=== PATIENT | female | born 1945 | race Caucasian/White ===

== ENCOUNTER → 2017-10-30 | Outpatient (CLI) | payer OTHER ==
[~2017-10-30] MED LIST: VICODIN ES 7501 TAB PO
[2017-10-30 10:32] LABS: HEMOGLOBIN 10.8 g/dl (12.0-16.0); MEAN CELL VOLUME 77.3 fl (81.0-99.0); MEAN CORPUSCULAR HGB 23.2 pg (27.0-31.0); MEAN PLATELET VOLUME 10.1 fl (9.6-12.3); RED BLOOD COUNT 4.66 10*6/uL (4.10-5.10); RED CELL DISTRI WIDTH 18.3 % (0-14.5); WHITE BLOOD COUNT 9.6 10*3/uL (4.8-10.8)
[2017-10-30 11:00] LABS: ALBUMIN 2.8 gm/dl (3.1-4.5); BUN 15 mg/dl (7-24); CHLORIDE 104 mmol/L (98-107); CHOLESTEROL 205 mg/dL (<200); CREATININE 0.98 mg/dL (0.55-1.02); HDL CHOLESTEROL 46 mg/dl (40-60); LDL CHOLESTEROL 114 mg/dL (9-159); POTASSIUM 3.8 mmol/L (3.5-5.1); SGOT/AST 12 IU/L (3-35); SGPT/ALT 16 U/L (12-78); SODIUM 137 mmol/L (136-145); TOTAL PROTEIN 7.4 gm/dL (6.4-8.2); TRIGLYCERIDES 224 mg/dl (<150); VLDL CHOLESTEROL 45 mg/dL (6-40)
[2017-10-30 11:06] LABS: ALKALINE PHOSPHATASE 87 U/L (45-117); FREE T4 0.74 ng/dl (0.76-1.46); THYROID STIM HORMONE (HS) 0.719 uIU/ml (0.358-4.75)
[2017-10-31 07:04] LABS: FREE T3 010389 2.5 pg/mL (2.0-4.4)
[2017-10-31 09:07] LABS: HEPATITIS B SURFACE AG Negative (Negative); HEPATITIS C VIRUS ANTIBODY <0.1 s/co (0.0-0.9)
== END | disposition home or self-care (01) ==
LOC: LAB 09:58
PROVIDERS: Family Medicine
DX: Z13.818 Encounter for screening for other digestive system disorders (principal); I50.9 Heart failure, unspecified; R06.02 Shortness of breath; R05 Cough; E03.1 Congenital hypothyroidism without goiter; E55.9 Vitamin D deficiency, unspecified; E78.00 Pure hypercholesterolemia, unspecified; R60.0 Localized edema

== ENCOUNTER → 2017-12-28 | Outpatient (CLI) | payer OTHER | END | disposition home or self-care (01) | LOC: US 10:55 → MAMMO 13:00 | DX: N64.89 Other specified disorders of breast (principal); R10.813 Right lower quadrant abdominal tenderness ==

== ENCOUNTER → 2018-01-17 | Outpatient (CLI) | payer OTHER | END | disposition home or self-care (01) | LOC: MAMMO 12-28 13:00 | DX: N64.89 Other specified disorders of breast (principal) ==

== ENCOUNTER → 2018-02-19 | Outpatient (CLI) | payer OTHER | END | disposition home or self-care (01) | LOC: RAD 16:29 | DX: R09.89 Other specified symptoms and signs involving the circulatory and respiratory systems (principal); R06.02 Shortness of breath; R05 Cough; J44.9 Chronic obstructive pulmonary disease, unspecified; Z87.891 Personal history of nicotine dependence ==

== ENCOUNTER → 2018-03-07 | Outpatient (CLI) | payer OTHER | LOC: CARD 07:21 | DX: R53.83 Other fatigue (principal); R60.0 Localized edema; R06.02 Shortness of breath ==

== ENCOUNTER 2019-05-27 12:56 | Inpatient (IN) | payer OTHER ==
[~2019-05-27] VITALS: Ht 157.4 cm; Wt 102.0 kg
--- NOTE | ~2019-05-27 | EKG ---
[place], [place] ELECTROCARDIOGRAM REPORT NAME: KAROLINA VELA UNIT #: [id number] ROOM: 528 DOCTOR: ZAID DRAFT REPORT BIRTHDATE: [birth year] [facility] Test Date: 2019-05-27 Test Time: 16:20:33 Pat Name: KAROLINA VELA Department: Room: 528 Gender: F Rfid Systems Engineer: SS RESP : 1945 Requested By: GUNNER KNAPP Order Number: [id number] Reading MD: Dairn Hidalgo MD Measurements Intervals [place] Rate: 98 P: 63 [place]: 153 QRS: 43 QRSD: 90 T: 55 QT: 423 QTc: 541 Interpretive Statements Sinus rhythm Multiple premature complexes, vent \T\ supraven Electronically Signed On 05-28-2019 4:54:45 PDT by Darin Hidalgo MD CM:EKGRPT:ELECTROCARDIOGRAM REPORT [id number] GUNNER MAR DRAFT REPORT GUNNER KNAPP M.D.
--- NOTE | ~2019-05-27 | PR ---
[place], [place] PROGRESS NOTE NAME: KAROLINA VELA [facility] #: [id number] UNIT #: [id number] ROOM: 528 DOCTOR: ROSALINDA YO MD BIRTHDATE: [birth year] DOS: 05/28/2019 SUBJECTIVE: The patient says her breathing is improving. No chest pains. She still has shortness of breath with exertion. OBJECTIVE: VITAL SIGNS: Blood pressure 124/69, heart rate of 70 beats per minute, breathing 20 times per minute, temperature 98 degrees Fahrenheit. GENERAL APPEARANCE: Obesity. The patient is alert and oriented x 3, in no visible distress. HEENT AND NECK: Exam within normal limits. CARDIOVASCULAR SYSTEM: Heart rate is regular in rate and rhythm. S1 and S2 normally audible. LUNGS: Clear to auscultation. ABDOMEN: Soft, nontender. No obvious organomegaly. Bowel sounds are present. EXTREMITIES: Without significant cyanosis or edema. IMPRESSION: 1. The patient with acute exacerbation of chronic obstructive pulmonary disease, improving with treatment with corticosteroids, oxygen, antibiotic. 2. Advanced adult failure to thrive with dyspnea on exertion. The patient to work with Physical Therapy. 3. Leukocytosis completely resolved in 1 day with antibiotic treatment. 4. Severe protein calorie malnutrition. Patient working with Dietary. 5. Morbid obesity with BMI of 41.1. Patient working Dietary. ROSALINDA YO MD CM:PNTRANS [id number] ROSALINDA YO MD 05/29/19 0129 interface
--- NOTE | ~2019-05-27 | EKG ---
[place], [place] ELECTROCARDIOGRAM REPORT NAME: KAROLINA VELA UNIT #: [id number] ROOM: 528 DOCTOR: ZAID DRAFT REPORT BIRTHDATE: [birth year] [facility] Test Date: 2019-05-27 Test Time: 12:58:47 Pat Name: KAROLINA VELA Department: Room: 528 Gender: F Director Of Security: : 1945 Requested By: GUNNER KNAPP Order Number: [id number] Reading MD: Darin Hidalgo MD Measurements Intervals [place] Rate: 84 P: 56 [place]: 153 QRS: 43 QRSD: 91 T: 58 QT: 400 QTc: 473 Interpretive Statements Sinus rhythm PACs and PVCs Electronically Signed On 05-28-2019 4:53:17 PDT by Darin Hidalgo MD CM:EKGRPT:ELECTROCARDIOGRAM REPORT [id number] GUNNER MAR DRAFT REPORT GUNNER KNAPP M.D.
--- NOTE | ~2019-05-27 | WRIGHTHP ---
[place], [place] PATIENT HISTORY AND PHYSICAL EXAM NAME: KAROLINA VELA [facility] #: [id number] UNIT #: [id number] ROOM: 528 DOCTOR: ROSALINDA YO MD BIRTHDATE: [birth year] DOS: 05/27/2019 HISTORY OF PRESENT ILLNESS: The patient is a 73-year-old female with a past medical history of: 1. Obesity. 2. COPD. 3. Cholecystectomy and appendectomy. 4. Hernia repair surgeries. 5. Fusion surgery to the back. 6. Severe protein-calorie malnutrition and adult failure to thrive, presented to the Emergency Department with 1 week complaints of increasing shortness of breath and dyspnea on exertion. No chest pains. SYSTEMS REVIEW: RESPIRATORY: Increasing shortness of breath. GASTROINTESTINAL: No nausea, vomiting, diarrhea or constipation. CARDIOVASCULAR: No chest pains or palpitations. FAMILY HISTORY: Noncontributory. HOME MEDICATIONS: Not known at this time. FAMILY HISTORY: Noncontributory. SOCIAL HISTORY: Denies smoking cigarettes, alcohol and drug abuse. Lives at home. PHYSICAL EXAMINATION: GENERAL APPEARANCE: Alert, oriented x 3, in no visible distress. VITAL SIGNS: Blood pressure 135/69, heart rate 78 beats per minute, breathing 18 times per minute, temperature 98.3 degrees Fahrenheit. HEENT AND NECK: Extraocular movements are intact. Sclerae are anicteric. Oral mucosa is moist and clean. No obvious facial weakness. Neck is supple without any lymphadenopathy. No thyromegaly. No JVD. No carotid arterial bruits. LUNGS: Clear to auscultation. No wheezing. No rhonchi. CARDIOVASCULAR SYSTEM: Heart rate is regular in rate and rhythm. S1 and S2 normally audible. No significant murmur or any other abnormal cardiac sounds. ABDOMEN: Morbid obesity. EXTREMITIES: Without significant cyanosis or edema. Warm to touch. CENTRAL NERVOUS SYSTEM: Alert and oriented x 3. Cranial nerves II-XII are intact. Speech is normal. The patient is able to move all extremities. Normal muscle strength. Deep tendon reflexes are equal on both sides. Plantars were downgoing. IMPRESSION: 1. Acute exacerbation of chronic obstructive pulmonary disease, to be treated with bronchodilators, corticosteroids, oxygen, nebulizer treatments and followed closely. 2. Leukocytosis. The patient to be kept on intravenous Zosyn. No signs of pneumonia on the chest x-ray. 3. Severe protein-calorie malnutrition. The patient to be followed by Dietary [place], [place] PATIENT HISTORY AND PHYSICAL EXAM [facility]: [id number] UNIT #: [id number] ROOM: 528 DOCTOR: SRINATH CARRILLO,ROSALINDA Ley BIRTHDATE: [birth year] and I will keep her on a regular diet. 4. Advanced adult failure to thrive. The patient will be kept on physical therapy. We will take fall and bedsore precautions, use an air mattress. ROSALINDA YO MD CM:HISPHYS:PATIENT HISTORY AND PHYSICAL EXAMINATION 164 02 ROSALINDA YO MD 05/27/191702 interface
--- NOTE | ~2019-05-27 | DS ---
[place], [place] DISCHARGE SUMMARY NAME: KAROLINA VELA UNIT #: [id number] ROOM: 528 DOCTOR: ROSALINDA YO MD BIRTHDATE: [birth year] DOS: 05/29/2019 DISCHARGE DIAGNOSES: 1. The patient with acute exacerbation of chronic obstructive pulmonary disease. 2. Morbid obesity, BMI of 41.1. 3. Severe protein-calorie malnutrition. 4. Adult failure to thrive. 5. Chronic obstructive pulmonary disease and dyspnea on exertion. HOSPITAL COURSE: The patient presented to [facility] Emergency Department with increased shortness of breath and dyspnea on exertion with cough and purulent sputum. The patient was diagnosed as having acute exacerbation of COPD and was treated with bronchodilators, corticosteroids, oxygen, antibiotic and her breathing is significantly improved. The patient still has purulent sputum, so she is being sent home on Augmentin, Medrol Dosepak and to follow up with her PCP, Dr. Ben Bazan within 1 week of discharge. The patient is not requiring any oxygen. Pulse ox is 93-96% on room air before discharge. The patient presented with severe leukocytosis, which resolved with antibiotics, but again white cell count became elevated from use of corticosteroids, which will be tapered down at home. Severe protein-calorie malnutrition. The patient worked with Dietary. Morbid obesity, BMI of 41.1. The patient worked with Dietary. Advance adult failure to thrive and dyspnea on exertion. The patient worked with Physical Therapy. The patient appears to have achieved maximum benefit from this admission and to follow up with her PCP as an outpatient within a week of discharge. LABORATORY DATA: White cell count ranging between 10-18,000 on blood counts. Blood cultures were negative. Cardiac enzymes were negative. Lactic acid level was normal. Chest x-ray showed no active disease. DISCHARGE MANAGEMENT: Medrol Dosepak, Augmentin 875 mg twice a day for a week. FOLLOWUP: With PCP within a week, Dr. Ben Bazan. [place], [place] DISCHARGE SUMMARY NAME: KAROLINA VELA UNIT #: [id number] ROOM: 528 DOCTOR: ROSALINDA YO MD BIRTHDATE: [birth year] ROSALINDA YO MD CM:HUGH [id number] ROSALINDA YO MD 05/29/191946 interface
--- NOTE | ~2019-05-27 | EKG ---
[place], [place] ELECTROCARDIOGRAM REPORT NAME: KAROLINA VELA UNIT #: [id number] ROOM: 528 DOCTOR: ZAID DRAFT REPORT BIRTHDATE: [birth year] [facility] Test Date: 2019-05-27 Test Time: 18:39:53 Pat Name: KAROLINA VELA Department: Room: 528 Gender: F Electrotherapist: SS RESP : 1945 Requested By: GUNNER KNAPP Order Number: [id number] Reading MD: Darin Hidalgo MD Measurements Intervals [place] Rate: 86 P: 72 [place]: 149 QRS: 45 QRSD: 90 T: 65 QT: 371 QTc: 444 Interpretive Statements Sinus rhythm Multiple premature complexes, vent \T\ supraven Borderline T abnormalities, anterior leads Electronically Signed On 05-28-2019 4:56:38 PDT by Darin Hidalgo MD CM:EKGRPT:ELECTROCARDIOGRAM REPORT [id number] GUNNER MAR DRAFT REPORT GUNNER KNAPP M.D.
[2019-05-27 12:59] VITALS: BP 129/57
[2019-05-27 13:16] LABS: BASO # 0.1 10*3/uL (0.0-0.1); BASO % 0.6 % (0.0-1.0); EOS # 0.3 10*3/uL (0.0-0.4); EOS % 1.7 % (1.0-4.0); HEMATOCRIT 37.2 % (37.0-47.0); HEMOGLOBIN 10.9 g/dl (12.0-16.0); LYMPH # 3.1 10*3/uL (1.3-4.4); LYMPH % 20.8 % (27.0-41.0); MEAN CELL VOLUME 74.7 fl (81.0-99.0); MEAN CORPUSCULAR HGB 21.9 pg (27.0-31.0); MEAN CORPUSCULAR HGB CONC 29.3 g/dl (33.0-37.0); MEAN PLATELET VOLUME 10.2 fl (9.6-12.3); MONO # 0.8 10*3/uL (0.1-1.0); MONO % 5.4 % (3.0-9.0); NEUT # 10.6 10*3/uL (2.3-7.9); NEUT % 71.1 % (47.0-73.0); PLATELET COUNT AUTOMATED 438 10*3/uL (130-400); RED BLOOD COUNT 4.98 10*6/uL (4.10-5.10); RED CELL DISTRI WIDTH 17.6 % (0-14.5); WHITE BLOOD COUNT 14.9 10*3/uL (4.8-10.8)
[2019-05-27 13:26] LABS: ACT PARTIAL THROMBO TIME 29.6 SECONDS (20.0-32.1)
[2019-05-27 13:35] LABS: ALBUMIN 2.5 gm/dl (3.1-4.5); ALKALINE PHOSPHATASE 88 U/L (45-117); BUN 12 mg/dl (7-24); CHLORIDE 102 mmol/L (98-107); CREATININE 0.98 mg/dL (0.55-1.02); POTASSIUM 3.6 mmol/L (3.5-5.1); SGOT/AST 8 IU/L (3-35); SGPT/ALT 16 U/L (12-78); SODIUM 138 mmol/L (136-145); TOTAL PROTEIN 8.3 gm/dL (6.4-8.2)
[2019-05-27 13:37] LABS: TROPONIN I < 0.015 ng/ml (<0.045)
[2019-05-27 14:18] VITALS: BP 133/63
[2019-05-27 15:40] VITALS: BP 135/69
--- NOTE | 2019-05-27 16:09 | NUR ---
PT IS STABLE AND READY FOR TRANSPORT TO INPATIENT ROOM.
[2019-05-27 20:00] VITALS: BP 102/58
--- NOTE | 2019-05-27 21:52 | NUR ---
DR YO AWARE OF BLOOD PRESSURE
[2019-05-28] VITALS: BP 112/54
--- NOTE | 2019-05-28 05:29 | NUR ---
MEDICATED WITH PRN TYLENOL FOR C/O PAIN IN LEGS AND BACK. WLL MONITOR
[2019-05-28 06:21] LABS: HEMATOCRIT 36.6 % (37.0-47.0); HEMOGLOBIN 10.5 g/dl (12.0-16.0); MEAN CELL VOLUME 75.9 fl (81.0-99.0); MEAN CORPUSCULAR HGB 21.8 pg (27.0-31.0); MEAN CORPUSCULAR HGB CONC 28.7 g/dl (33.0-37.0); MEAN PLATELET VOLUME 10.5 fl (9.6-12.3); PLATELET COUNT AUTOMATED 421 10*3/uL (130-400); RED BLOOD COUNT 4.82 10*6/uL (4.10-5.10); RED CELL DISTRI WIDTH 17.6 % (0-14.5); WHITE BLOOD COUNT 10.5 10*3/uL (4.8-10.8)
[2019-05-28 06:45] LABS: MICROCYTOSIS SLIGHT; PLATELET SUFFICIENCY HIGH (NORMAL); SCHISTOCYTES FEW; TOTAL CELLS COUNTED 100 #CELLS
[2019-05-28 06:46] LABS: OVALOCYTES FEW
[2019-05-28 08:00] VITALS: BP 124/69
--- NOTE | 2019-05-28 08:15 | NUR ---
PT RESTING IN BED. RESP-EASY AND REGULAR. NO C/O AT THIS TIME. CALL LIGHT IN REACH. SEE SHIFT ASSESSMENT.
--- NOTE | 2019-05-28 08:30 | NUR ---
Service Vehicle Operator in to talk to patient. Patient states lives at home alone with her son and family checking in on her. There are 0 steps in the home. There is a wheelchair ramp. Physician: Dr. Ben Bazan Pharmacy: [facility] Home health services: none Patient's level of ADLs: MINIMAL ASSIST Patient has working utilities: yes DME: cane, walker, nebulizer Follow-up physician's appointment after d/c: she prefers to make her own follow up appt after discharge Does patient want to access PORTAL?: no Discharge plan discussed with patient. She lives at home alone with her son and family checking in on her. She is independent in her ADLs and ambulates with a cane or a walker. Discussed home health care services and she denies any home needs at this time. When medically stable she will be discharged to home. Her friend will provide transportation on discharge. WOODY GUERRERO
--- NOTE | 2019-05-28 10:00 | NUR ---
PT SITTING UP AT SIDE OF BED EATING. NO C/O AT THIS TIME. CALL LIGHT IN REACH.
--- NOTE | 2019-05-28 14:54 | NUR ---
PT C/O HEADACHE RATES PAIN 4 ON PAIN SCALE 0-10 ALSO C/O RLQ ABDOMINAL PAIN, RATES PAIN7 OR 8 ON PAIN SCALE 0-10. MEDICATED WITH TYLENOL PO PER PRN ORDER, SEE EMAR. CALL LIGHT IN REACH.
[2019-05-28 16:00] VITALS: BP 96/79
--- NOTE | 2019-05-28 16:15 | NUR ---
PT RESTING IN BED. RESP-EASY AND REGULAR. NO C/O AT THIS TIME. CALL LIGHT IN REACH. SEE SHIFT ASSESSMENT.
--- NOTE | 2019-05-28 16:25 | NUR ---
Nursing screen received and chart reviewed. Patient admitted with chest pain and SOB. If patient should have a decline in ADls or decreased safety for returning home then refer to occupational therapy. Thank you. Radha Watson OTR/L
--- NOTE | 2019-05-28 19:00 | NUR ---
PT TOLERATED ROUTINE IV MEDICATION. NO C/O AT THIS TIME. CALL LIGHT IN REACH.
[2019-05-28 20:00] VITALS: BP 102/54
[2019-05-29] VITALS: BP 99/42
--- NOTE | 2019-05-29 02:20 | NUR ---
24 HR chart check completed.
[2019-05-29 06:31] LABS: BASO % 0.1 % (0.0-1.0); HEMATOCRIT 31.4 % (37.0-47.0); HEMOGLOBIN 9.1 g/dl (12.0-16.0); LYMPH # 1.4 10*3/uL (1.3-4.4); LYMPH % 7.6 % (27.0-41.0); MEAN CELL VOLUME 74.4 fl (81.0-99.0); MEAN CORPUSCULAR HGB 21.6 pg (27.0-31.0); MEAN PLATELET VOLUME 10.7 fl (9.6-12.3); MONO # 0.6 10*3/uL (0.1-1.0); MONO % 3.4 % (3.0-9.0); NEUT # 16.2 10*3/uL (2.3-7.9); NEUT % 88.1 % (47.0-73.0); PLATELET COUNT AUTOMATED 438 10*3/uL (130-400); RED BLOOD COUNT 4.22 10*6/uL (4.10-5.10); RED CELL DISTRI WIDTH 17.5 % (0-14.5); WHITE BLOOD COUNT 18.4 10*3/uL (4.8-10.8)
[2019-05-29 08:00] VITALS: BP 103/50
--- NOTE | 2019-05-29 08:10 | NUR ---
SITTING UP AT SIDE OF BED. RESP-EASY AND REGULAR. PT C/O RLQ/GROIN AREA PAIN WITH COUGHING. MEDICATED WITH TYLENOL PER PT REQUEST. SEE EMAR. CALL LIGHT IN REACH. SEE SHIFT ASSESSMENT.
[2019-05-29] MEDS ORDERED: MEDROL DOSEPAK4 MG PO (10:21)
[2019-05-29] MEDS ORDERED: AUGMENTIN 875-875 MG PO (10:21)
--- NOTE | 2019-05-29 11:12 | NUR ---
PHYSICAL THERAPY Physical therapy evaluation attempted however upon arrival to room, Pt in street clothes and waiting on discharge papers to return home. Reports "my ride is waiting for me downstairs." Pt expressing no concerns for discharge home. No PT needs at this time. Thank you for your referral. Orin Whitman, PT, DPT
--- NOTE | 2019-05-29 11:31 | NUR ---
Discharge instructions reviewed with patient/family. Patient receptive and verbalizes understanding. Follow-up care arranged. Written instructions given to patient/family. HEPLOCK REMOVED 2X2 APPLIED. PT ESCORTED VIA WHEELCHAIR FOR DISCHARGE. ELADIO KYLE
== END 2019-05-29 11:31 | disposition home or self-care (01) | DRG 190 ==
LOC: ED 12:56 → EDHOLD 15:12 → 5E 15:12
PROVIDERS: Emergency Medicine; ADMIT Internal Medicine
DX: J44.1 Chronic obstructive pulmonary disease with (acute) exacerbation (principal); E43 Unspecified severe protein-calorie malnutrition; Z68.41 Body mass index [BMI] 40.0-44.9, adult; R62.7 Adult failure to thrive; E66.01 Morbid (severe) obesity due to excess calories; Z90.49 Acquired absence of other specified parts of digestive tract

== ENCOUNTER → 2019-06-06 | Outpatient (CLI) | payer OTHER ==
[~2019-06-06] MED LIST changes: +AUGMENTIN 875-875 MG PO; +MEDROL DOSEPAK4 MG PO
[2019-06-06 12:07] LABS: HEMATOCRIT 37.3 % (37.0-47.0); HEMOGLOBIN 10.7 g/dl (12.0-16.0); MEAN CELL VOLUME 76.1 fl (81.0-99.0); MEAN CORPUSCULAR HGB 21.8 pg (27.0-31.0); MEAN CORPUSCULAR HGB CONC 28.7 g/dl (33.0-37.0); MEAN PLATELET VOLUME 10.1 fl (9.6-12.3); RED BLOOD COUNT 4.9 10*6/uL (4.10-5.10); RED CELL DISTRI WIDTH 19.3 % (0-14.5); WHITE BLOOD COUNT 15.9 10*3/uL (4.8-10.8)
[2019-06-06 12:47] LABS: ALBUMIN 2.6 gm/dl (3.1-4.5); ALKALINE PHOSPHATASE 82 U/L (45-117); BUN 12 mg/dl (7-24); CHLORIDE 101 mmol/L (98-107); CHOLESTEROL 211 mg/dL (<200); CREATININE 0.92 mg/dL (0.55-1.02); HDL CHOLESTEROL 66 mg/dl (40-60); LDL CHOLESTEROL 121 mg/dL (9-159); POTASSIUM 3.8 mmol/L (3.5-5.1); SGOT/AST 7 IU/L (3-35); SGPT/ALT 19 U/L (12-78); SODIUM 136 mmol/L (136-145); TOTAL PROTEIN 7.8 gm/dL (6.4-8.2); TRIGLYCERIDES 120 mg/dl (<150); VLDL CHOLESTEROL 24 mg/dL (6-40)
== END | disposition home or self-care (01) ==
LOC: LAB 11:31
PROVIDERS: Nurse Practitioner Family
DX: E03.9 Hypothyroidism, unspecified (principal); I50.9 Heart failure, unspecified; E55.9 Vitamin D deficiency, unspecified; R53.83 Other fatigue

== ENCOUNTER 2019-06-18 14:59 | Emergency (ER) | payer OTHER ==
[~2019-06-18] VITALS: Ht 157.4 cm; Wt 101.2 kg
--- NOTE | ~2019-06-18 | EKG ---
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
[2019-06-18 15:57] LABS: BASO # 0.1 10*3/uL (0.0-0.1); BASO % 0.4 % (0.0-1.0); EOS # 0.1 10*3/uL (0.0-0.4); EOS % 0.7 % (1.0-4.0); HEMATOCRIT 33.2 % (37.0-47.0); HEMOGLOBIN 9.8 g/dl (12.0-16.0); LYMPH # 1.5 10*3/uL (1.3-4.4); LYMPH % 12.3 % (27.0-41.0); MEAN CELL VOLUME 75.3 fl (81.0-99.0); MEAN CORPUSCULAR HGB 22.2 pg (27.0-31.0); MEAN CORPUSCULAR HGB CONC 29.5 g/dl (33.0-37.0); MEAN PLATELET VOLUME 10.4 fl (9.6-12.3); MONO # 0.4 10*3/uL (0.1-1.0); MONO % 3.5 % (3.0-9.0); NEUT # 10.1 10*3/uL (2.3-7.9); NEUT % 82.6 % (47.0-73.0); PLATELET COUNT AUTOMATED 378 10*3/uL (130-400); RED BLOOD COUNT 4.41 10*6/uL (4.10-5.10); RED CELL DISTRI WIDTH 18.6 % (0-14.5); WHITE BLOOD COUNT 12.2 10*3/uL (4.8-10.8)
[2019-06-18 16:10] LABS: ACT PARTIAL THROMBO TIME 30.5 SECONDS (20.0-32.1)
[2019-06-18 16:26] LABS: ALBUMIN 2.6 gm/dl (3.1-4.5); ALKALINE PHOSPHATASE 83 U/L (45-117); BUN 10 mg/dl (7-24); CHLORIDE 103 mmol/L (98-107); CREATININE 0.82 mg/dL (0.55-1.02); LIPASE 70 U/L (73-393); POTASSIUM 3.8 mmol/L (3.5-5.1); SGOT/AST 13 IU/L (3-35); SGPT/ALT 17 U/L (12-78); SODIUM 138 mmol/L (136-145); TOTAL PROTEIN 7.8 gm/dL (6.4-8.2)
[2019-06-18 16:27] LABS: TROPONIN I < 0.015 ng/ml (<0.045)
[2019-06-18 17:27] LABS: BILIRUBIN NEGATIVE (NEGATIVE); BLOOD NEGATIVE (NEGATIVE); CLARITY SL CLOUDY (CLEAR); COLOR YELLOW (YELLOW); GLUCOSE NEGATIVE (NEGATIVE); KETONE NEGATIVE (NEGATIVE); LEUKO ESTERASE NEGATIVE (NEGATIVE); NITRITE NEGATIVE (NEGATIVE); PH 5.5 (5.0-9.0); SPECIFIC GRAVITY >= 1.030 (1.005-1.030); UROBILINOGEN 0.2 E.U./dl (0.2-1.0)
[2019-06-18 17:34] LABS: BACTERIA TRACE
[2019-06-18 20:50] VITALS: BP 136/64
== END 2019-06-18 21:15 | disposition home or self-care (01) ==
LOC: ED 14:59
PROVIDERS: Emergency Medicine
DX: K52.9 Noninfective gastroenteritis and colitis, unspecified (principal); J44.9 Chronic obstructive pulmonary disease, unspecified; Z91.041 Radiographic dye allergy status; Z88.2 Allergy status to sulfonamides; Z79.2 Long term (current) use of antibiotics; Z90.49 Acquired absence of other specified parts of digestive tract

== ENCOUNTER → 2019-06-21 | Outpatient (CLI) | payer OTHER | END | disposition home or self-care (01) | LOC: RAD 12:44 | DX: M54.5 Low back pain (principal) ==

== ENCOUNTER → 2019-09-10 | Outpatient (CLI) | payer OTHER | END | disposition home or self-care (01) | LOC: RAD 15:37 | DX: M17.12 Unilateral primary osteoarthritis, left knee (principal) ==

== ENCOUNTER → 2020-01-14 | Outpatient (CLI) | payer OTHER ==
[2020-01-14 11:19] LABS: HEMATOCRIT 31.5 % (37.0-47.0); MEAN CELL VOLUME 71.6 fl (81.0-99.0); MEAN CORPUSCULAR HGB 20.5 pg (27.0-31.0); MEAN CORPUSCULAR HGB CONC 28.6 g/dl (33.0-37.0); MEAN PLATELET VOLUME 9.8 fl (9.6-12.3); RED BLOOD COUNT 4.4 10*6/uL (4.10-5.10); RED CELL DISTRI WIDTH 17.3 % (0-14.5); WHITE BLOOD COUNT 14.1 10*3/uL (4.8-10.8)
[2020-01-14 11:51] LABS: CHLORIDE 100 mmol/L (98-107); POTASSIUM 3.5 mmol/L (3.5-5.1); SODIUM 135 mmol/L (136-145)
[2020-01-14 12:02] LABS: ALBUMIN 2.2 gm/dl (3.1-4.5); ALKALINE PHOSPHATASE 83 U/L (45-117); BUN 11 mg/dl (7-24); CHOLESTEROL 171 mg/dL (<200); CREATININE 0.84 mg/dL (0.55-1.02); FREE T4 0.95 ng/dl (0.76-1.46); HDL CHOLESTEROL 50 mg/dl (40-60); LDL CHOLESTEROL 97 mg/dL (9-159); SGOT/AST 9 IU/L (3-35); SGPT/ALT 11 U/L (12-78); TOTAL PROTEIN 7.8 gm/dL (6.4-8.2); TRIGLYCERIDES 122 mg/dl (<150); VLDL CHOLESTEROL 24 mg/dL (6-40)
[2020-01-14 13:08] LABS: VITAMIN D, 25-HYDROXY 30.6 ng/mL (30-100)
== END | disposition home or self-care (01) ==
LOC: LAB 10:49
PROVIDERS: Family Medicine
DX: J44.9 Chronic obstructive pulmonary disease, unspecified (principal); E78.00 Pure hypercholesterolemia, unspecified; E03.9 Hypothyroidism, unspecified; R53.83 Other fatigue; D64.9 Anemia, unspecified; E55.9 Vitamin D deficiency, unspecified

== ENCOUNTER → 2020-11-12 | Outpatient (CLI) | payer OTHER ==
[2020-11-12 15:45] LABS: BASO # 0.1 10*3/uL (0.0-0.1); BASO % 0.5 % (0.0-1.0); EOS # 0.3 10*3/uL (0.0-0.4); EOS % 1.2 % (1.0-4.0); HEMATOCRIT 28.8 % (37.0-47.0); LYMPH # 2.5 10*3/uL (1.3-4.4); LYMPH % 12.3 % (27.0-41.0); MEAN CELL VOLUME 66.1 fl (81.0-99.0); MEAN CORPUSCULAR HGB 18.6 pg (27.0-31.0); MEAN CORPUSCULAR HGB CONC 28.1 g/dl (33.0-37.0); MEAN PLATELET VOLUME 9.4 fl (9.6-12.3); MONO % 4.7 % (3.0-9.0); NEUT # 16.5 10*3/uL (2.3-7.9); NEUT % 80.6 % (47.0-73.0); PLATELET COUNT AUTOMATED 705 10*3/uL (130-400); RED BLOOD COUNT 4.36 10*6/uL (4.10-5.10); RED CELL DISTRI WIDTH 19.3 % (0-14.5); RETICULOCYTE % 1.12 % (0.50-2.50); WHITE BLOOD COUNT 20.4 10*3/uL (4.8-10.8)
[2020-11-12 16:15] LABS: IRON 13 ug/dL (50-170); TOTAL IRON BINDING CAPACITY 284 ug/dl (250-450)
[2020-11-13 08:08] LABS: TOTAL PROTEIN, SERUM 7.6 g/dL (6.0-8.5)
[2020-11-13 16:07] LABS: A/G RATIO 0.5 (0.7-1.7); ALBUMIN 2.4 g/dL (2.9-4.4); ALPHA-1-GLOBULIN 0.5 g/dL (0.0-0.4); ALPHA-2-GLOBULIN 1.3 g/dL (0.4-1.0); BETA GLOBULIN 1.3 g/dL (0.7-1.3); GAMMA GLOBULIN 2.2 g/dL (0.4-1.8); GLOBULIN, TOTAL 5.2 g/dL (2.2-3.9); M-SPIKE Not Observed g/dL (Not Observed)
[2020-11-16 16:07] LABS: ALBUMIN, URINE 17.6 % (.); ALPHA-1-GLOBULIN, URINE 1.4 % (.); ALPHA-2-GLOBULIN, URINE 15.4 % (.); BETA GLOBULIN, URINE 29.5 % (.); GAMMA GLOBULIN, URINE 36.1 % (.); M-SPIKE, % Not Observed % (Not Observed); PROTEIN,TOTAL - URINE RANDOM 93.2 mg/dL (Not Estab.)
== END | disposition home or self-care (01) ==
LOC: LAB 15:25
PROVIDERS: ATTEND Family Medicine
DX: D72.829 Elevated white blood cell count, unspecified (principal); E78.00 Pure hypercholesterolemia, unspecified; D64.9 Anemia, unspecified

== ENCOUNTER → 2020-11-25 | Outpatient (CLI) | payer OTHER | END | disposition home or self-care (01) | LOC: NM 09:51 | PROVIDERS: ATTEND Family Medicine | DX: M79.10 Myalgia, unspecified site (principal); N64.9 Disorder of breast, unspecified; M89.8X9 Other specified disorders of bone, unspecified site ==